=== PATIENT | male | born 1965 | race Caucasian/White ===

== ENCOUNTER 2016-06-17 14:52 | Inpatient (IN) | payer OTHER ==
[2016-06-17 15:49] LABS: BASO % 0.2 % (0.2-1.2); EOS # 0.2 10_X3_uL (0.0-0.5); EOS % 2.1 % (0.8-7.0); GRAN # 6.7 10_X3_uL (1.8-5.4); HEMATOCRIT 42.6 % (40-51); LYMPH # 1.5 10_X3_uL (1.3-3.6); LYMPH % 16.4 % (21.8-53.1); MEAN CORPUSCULAR HEMOGLOBIN 31.6 pg (27.0-33.0); MEAN CORPUSCULAR HGB CONC 35.2 g/dL (32.0-36.0); MEAN CORPUSCULAR VOLUME 89.9 fL (79-92); MEAN PLATELET VOLUME 9.3 fl (7.5-11.5); MONO # 0.8 10_X3_uL (0.3-0.8); MONO % 8.3 % (5.3-12.2); PLATELET COUNT 302 x10_3/uL (163-337); RED BLOOD COUNT 4.74 x10_6/uL (4.6-6.1); RED CELL DISTRIBUTION WIDTH 12.6 % (11.6-14.4); WHITE BLOOD COUNT 9.2 x10_3/uL (4.2-9.1)
[2016-06-17 16:01] LABS: BLOOD UREA NITROGEN 17 mg/dL (7-18); CALCIUM 9.2 mg/dL (8.7-10.7); CARBON DIOXIDE 24 mmol/L (21-32); GLUCOSE,RANDOM 145 mg/dL (70-99); POTASSIUM 4.4 mmol/L (3.5-5.1); SODIUM 134 mmol/L (136-145)
[2016-06-19 11:10] LABS: BASO % 0.5 % (0.2-1.2); EOS # 0.3 10_X3_uL (0.0-0.5); EOS % 5.3 % (0.8-7.0); GRAN # 3.1 10_X3_uL (1.8-5.4); GRAN % 50.9 % (34.0-67.9); HEMATOCRIT 40.7 % (40-51); HEMOGLOBIN 14.1 g/dL (13.7-17.5); LYMPH # 1.9 10_X3_uL (1.3-3.6); LYMPH % 31.6 % (21.8-53.1); MEAN CORPUSCULAR HEMOGLOBIN 31.4 pg (27.0-33.0); MEAN CORPUSCULAR HGB CONC 34.6 g/dL (32.0-36.0); MEAN CORPUSCULAR VOLUME 90.6 fL (79-92); MEAN PLATELET VOLUME 9.1 fl (7.5-11.5); MONO # 0.7 10_X3_uL (0.3-0.8); MONO % 11.7 % (5.3-12.2); PLATELET COUNT 294 x10_3/uL (163-337); RED BLOOD COUNT 4.49 x10_6/uL (4.6-6.1); RED CELL DISTRIBUTION WIDTH 12.5 % (11.6-14.4); WHITE BLOOD COUNT 6.1 x10_3/uL (4.2-9.1)
[2016-06-19 11:22] LABS: BLOOD UREA NITROGEN 14 mg/dL (7-18); CARBON DIOXIDE 28 mmol/L (21-32); CREATININE 0.9 mg/dL (0.6-1.3); GLUCOSE,RANDOM 148 mg/dL (70-99); POTASSIUM 4.3 mmol/L (3.5-5.1); SODIUM 138 mmol/L (136-145)
[2016-06-20 07:29] LABS: BASO % 0.6 % (0.2-1.2); EOS # 0.3 10_X3_uL (0.0-0.5); EOS % 5.4 % (0.8-7.0); GRAN # 3.3 10_X3_uL (1.8-5.4); GRAN % 51.6 % (34.0-67.9); HEMATOCRIT 39.8 % (40-51); HEMOGLOBIN 13.5 g/dL (13.7-17.5); LYMPH # 2.1 10_X3_uL (1.3-3.6); LYMPH % 33.5 % (21.8-53.1); MEAN CORPUSCULAR HGB CONC 33.9 g/dL (32.0-36.0); MEAN CORPUSCULAR VOLUME 91.5 fL (79-92); MEAN PLATELET VOLUME 9.1 fl (7.5-11.5); MONO # 0.6 10_X3_uL (0.3-0.8); MONO % 8.9 % (5.3-12.2); PLATELET COUNT 319 x10_3/uL (163-337); RED BLOOD COUNT 4.35 x10_6/uL (4.6-6.1); RED CELL DISTRIBUTION WIDTH 12.4 % (11.6-14.4); WHITE BLOOD COUNT 6.3 x10_3/uL (4.2-9.1)
[2016-06-20 07:45] LABS: BLOOD UREA NITROGEN 16 mg/dL (7-18); CALCIUM 8.7 mg/dL (8.7-10.7); CARBON DIOXIDE 25 mmol/L (21-32); CREATININE 0.9 mg/dL (0.6-1.3); GLUCOSE,RANDOM 124 mg/dL (70-99); POTASSIUM 4.2 mmol/L (3.5-5.1); SODIUM 139 mmol/L (136-145)
[2016-06-21 06:25] LABS: BASO % 0.3 % (0.2-1.2); EOS # 0.3 10_X3_uL (0.0-0.5); GRAN # 2.7 10_X3_uL (1.8-5.4); GRAN % 42.2 % (34.0-67.9); HEMATOCRIT 39.9 % (40-51); HEMOGLOBIN 13.7 g/dL (13.7-17.5); LYMPH # 2.8 10_X3_uL (1.3-3.6); LYMPH % 43.7 % (21.8-53.1); MEAN CORPUSCULAR HEMOGLOBIN 31.6 pg (27.0-33.0); MEAN CORPUSCULAR HGB CONC 34.3 g/dL (32.0-36.0); MEAN CORPUSCULAR VOLUME 91.9 fL (79-92); MEAN PLATELET VOLUME 9.2 fl (7.5-11.5); MONO # 0.6 10_X3_uL (0.3-0.8); MONO % 8.8 % (5.3-12.2); PLATELET COUNT 321 x10_3/uL (163-337); RED BLOOD COUNT 4.34 x10_6/uL (4.6-6.1); RED CELL DISTRIBUTION WIDTH 12.3 % (11.6-14.4); WHITE BLOOD COUNT 6.4 x10_3/uL (4.2-9.1)
[2016-06-21 06:41] LABS: ALBUMIN 3.7 gm/dL (3.4-5.0); ALKALINE PHOSPHATASE 50 U/L (50-136); ALT/SGPT 34 U/L (7.53-40.17); AST/SGOT 18 U/L (6.66-35.34); BILIRUBIN,TOTAL 0.26 mg/dL (0.0-1.0); BLOOD UREA NITROGEN 16 mg/dL (7-18); CALCIUM 8.8 mg/dL (8.7-10.7); CARBON DIOXIDE 29 mmol/L (21-32); CREATININE 0.9 mg/dL (0.6-1.3); GLUCOSE,RANDOM 118 mg/dL (70-99); POTASSIUM 4.5 mmol/L (3.5-5.1); SODIUM 140 mmol/L (136-145); TOTAL PROTEIN 6.4 gm/dL (6.4-8.2)
== END 2016-06-21 14:23 | disposition home or self-care (01) | DRG 603 ==
LOC: ER 14:52 → MS 17:04
PROVIDERS: Emergency Medicine; ADMIT Family Medicine
PROC: 0H9XXZZ Drainage of Left Nipple, External Approach (ICD-10-PCS; principal; 2016-06-19)
DX: L03.115 Cellulitis of right lower limb (principal); I96 Gangrene, not elsewhere classified; L02.415 Cutaneous abscess of right lower limb; B95.62 Methicillin resistant Staphylococcus aureus infection as the cause of diseases classified elsewhere; M25.561 Pain in right knee; F41.9 Anxiety disorder, unspecified; F32.9 Major depressive disorder, single episode, unspecified; R50.9 Fever, unspecified; L40.9 Psoriasis, unspecified; Z79.899 Other long term (current) drug therapy; Z88.0 Allergy status to penicillin; Z83.3 Family history of diabetes mellitus; Z80.9 Family history of malignant neoplasm, unspecified; Z82.49 Family history of ischemic heart disease and other diseases of the circulatory system; Z83.6 Family history of other diseases of the respiratory system
CPT/HCPCS: 36415; 73700; 80048; 80053; 80202; 83605; 85025; 87070; 87186; 96365; 99070; 99284-25; J3370

== ENCOUNTER 2016-06-17 14:52 | Emergency (ER) | payer OTHER | END 2016-06-17 17:04 | disposition other institution (70) | LOC: ER 14:52 | DX: L03.115 Cellulitis of right lower limb (principal); R53.1 Weakness; R53.81 Other malaise; Z86.14 Personal history of Methicillin resistant Staphylococcus aureus infection; L40.9 Psoriasis, unspecified; Z88.0 Allergy status to penicillin; Z79.899 Other long term (current) drug therapy | CPT/HCPCS: 99284-25 ==